=== PATIENT | female | born 1995 ===

== ENCOUNTER 2021-12-13 16:37 | Emergency (ER) | payer SELFPAY ==
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
[2021-12-13 18:44] VITALS: BP 141/80
== END 2021-12-13 19:00 | disposition home or self-care (01) ==
LOC: ED 16:37
DX: S09.90XA Unspecified injury of head, initial encounter (principal); V89.2XXA Person injured in unspecified motor-vehicle accident, traffic, initial encounter; Y93.89 Activity, other specified; Y92.89 Other specified places as the place of occurrence of the external cause; Y99.8 Other external cause status
CPT/HCPCS: 70450; 99284